=== PATIENT | female | born 1965 | race Caucasian/White ===

== ENCOUNTER 2018-11-07 14:15 | Emergency (ER) | payer MEDICAID, OTHER ==
[2018-11-07] MEDS ORDERED: NS(*) 0.9% 500 ML BAG 500 ML IV ONE (14:30)
--- NOTE | 2018-11-07 14:43 | ER Report ---
History and Physical Time Seen By MD: 14:33 HPI/ROS CHIEF COMPLAINT: Alcohol detox, suicidal ideation HISTORY OF PRESENT ILLNESS: 52-year-old female patient presents to emergency room with complaint of needing to detox from alcohol and suicidal ideation. Patient states that she tried to hang herself all she was in intermediate. She is unsure what day that was. She states that she was evaluated in the emergency room in [place]. She states she was cleared and then returned to intermediate. She states that she did attempt to strangle herself this morning. She states that she did not pass out, but she states that which he used wraparound her neck was very tight. She denies any suicidal ideation at this time. She states this was due more to being in intermediate. Patient states that she is typically very healthy and does not take any medications. REVIEW OF SYSTEMS: Respiratory: No cough, no dyspnea. Cardiovascular: No chest pain, no palpitations. Gastrointestinal: No vomiting, no abdominal pain. Musculoskeletal: No back pain. Allergies: Coded Allergies: diphenhydramine (Verified Allergy, Intermediate, Hives, 11/07/18) Home Meds Reported Medications Trazodone Hcl (TRAZODONE HCL) 100 Mg Tablet, 200 MG PO QHS, TAB 11/07/18 Clonazepam (CLONAZEPAM) 2 Mg Tablet, 2 MG PO BID, #6 TAB 11/07/18 Buspirone Hcl (BUSPIRONE HCL) 5 Mg Tab, 5 MG PO BID, #10 TAB 11/07/18 Citalopram Hydrobromide (CITALOPRAM HBR) 20 Mg Tablet, 40 MG PO QDAY, #5 TAB 11/07/18 Multivitamin (MULTI VITAMIN DAILY) 1 Each Tablet, 1 EACH PO 11/07/18 Past Medical/Surgical History Patient has a past medical history of meth use, marijuana use, alcohol abuse, hypothyroidism, suicide attempt. Patient has a surgical history of hysterectomy, tubal ligation. Reviewed Nurses Notes: Yes Constitutional Vital Sign - Last 24 Hours 11/07/18 14:49 Temp 99.4 Pulse 70 Resp 16 B/P (MAP) 133/80 O2 Delivery Room Air Physical Exam General Appearance: The patient is alert, has no immediate need for airway protection and no current signs of toxicity. Respiratory: Chest is non tender, lungs are clear to auscultation. Cardiac: regular rate and rhythm Gastrointestinal: Abdomen is soft and non tender, no masses, bowel sounds normal. Musculoskeletal: Neck: Neck is supple and non tender. Extremities have full range of motion and are non tender. Skin: No rashes or lesions. DIFFERENTIAL DIAGNOSIS: After history and physical exam differential diagnosis was considered for depression, alcohol abuse, suicidal ideation. Medical Decision Making Data Points Result Diagram: 11/07/18 1438 11/07/18 1438 Laboratory Hematology Test 11/07/18 14:38 11/07/18 14:45 Red Blood Count 5.17 M/uL (4.17-5.56) Mean Corpuscular Volume 89.9 fL (80.0-96.0) Mean Corpuscular Hemoglobin 30.4 pg (26.0-33.0) Mean Corpuscular Hemoglobin Concent 33.8 g/dL (32.0-36.0) Red Cell Distribution Width 14.3 % (11.5-14.5) Mean Platelet Volume 7.5 fL (7.2-11.1) Neutrophils (%) (Auto) 65.3 % (39.4-72.5) Lymphocytes (%) (Auto) 25.4 % (17.6-49.6) Monocytes (%) (Auto) 7.1 % (4.1-12.4) Eosinophils (%) (Auto) 1.5 % (0.4-6.7) Basophils (%) (Auto) 0.7 % (0.3-1.4) Nucleated RBC Relative Count (auto) 0.0 /100WBC Neutrophils # (Auto) 5.9 K/uL (2.0-7.4) Lymphocytes # (Auto) 2.3 K/uL (1.3-3.6) Monocytes # (Auto) 0.6 K/uL (0.3-1.0) Eosinophils # (Auto) 0.1 K/uL (0.0-0.5) Basophils # (Auto) 0.1 K/uL (0.0-0.1) Nucleated RBC Absolute Count (auto) 0.00 K/uL Sodium Level 135 mmol/L (137-145) Potassium Level 3.6 mmol/L (3.5-5.0) Chloride Level 104 mmol/L (98-107) Carbon Dioxide Level 29 mmol/L (22-31) Blood Urea Nitrogen 14 mg/dl (7-18) Creatinine 0.60 mg/dl (0.52-1.04) Glomerular Filtration Rate Calc > 60.0 Random Glucose 135 mg/dl (75-110) Calcium Level 9.1 mg/dl (8.4-10.2) Magnesium Level 1.9 mg/dl (1.7-2.2) Total Bilirubin 0.2 mg/dl (0.2-1.3) Aspartate Amino Transf (AST/SGOT) 19 U/L (0-35) Alanine Aminotransferase (ALT/SGPT) 21 U/L (0-56) Alkaline Phosphatase 78 U/L (0-126) Total Protein 7.0 g/dl (6.3-8.2) Albumin 4.2 g/dl (3.5-5.0) Thyroid Stimulating Hormone (TSH) 1.42 uIU/ml (0.46-4.68) Salicylates Level < 10 mg/L Salicylate Last Dose Date unk Acetaminophen Level < 10 ug/ml Serum Alcohol < 10 mg/dl Urine Color Yellow Urine Clarity Slightly-cloudy Urine pH 5.0 pH (4.8-9.5) Urine Specific [place] 1.026 Urine Protein Negative mg/dL (NEGATIVE) Urine Glucose (UA) Negative mg/dL (NEGATIVE) Urine Ketones Negative mg/dL (NEGATIVE) Urine Blood Negative (NEGATIVE) Urine Nitrite Negative (NEGATIVE) Urine Bilirubin Negative (NEGATIVE) Urine Urobilinogen 0.2 mg/dL (0.2-1.9) Urine Leukocyte Esterase Negative (NEGATIVE) Urine RBC <1 /HPF (0-2/HPF) Urine WBC 2 /HPF (0-5/HPF) Urine Squamous Epithelial Cells Many /LPF (</=FEW) Urine Transitional Epithelial Cells Few /LPF (NONE-FEW) Urine Bacteria Few /HPF (NONE-FEW) Urine Mucus Few /HPF (NONE-FEW) Urine HCG, Qualitative Negative (NEGATIVE) Urine Opiates Screen Negative Urine Barbiturates Screen Negative Ur Tricyclic Antidepressants Screen Negative Urine Phencyclidine Screen Negative Urine Amphetamines Screen Negative Urine Benzodiazepines Screen Negative Urine Cocaine Screen Negative Urine Cannabinoids Screen Positive Chemistry Test 11/07/18 14:38 11/07/18 14:45 White Blood Count 9.0 k/uL (4.5-11.0) Red Blood Count 5.17 M/uL (4.17-5.56) Hemoglobin 15.7 g/dL (12.0-16.0) Hematocrit 46.5 % (34.0-47.0) Mean Corpuscular Volume 89.9 fL (80.0-96.0) Mean Corpuscular Hemoglobin 30.4 pg (26.0-33.0) Mean Corpuscular Hemoglobin Concent 33.8 g/dL (32.0-36.0) Red Cell Distribution Width 14.3 % (11.5-14.5) Platelet Count 292 K/uL (150-450) Mean Platelet Volume 7.5 fL (7.2-11.1) Neutrophils (%) (Auto) 65.3 % (39.4-72.5) Lymphocytes (%) (Auto) 25.4 % (17.6-49.6) Monocytes (%) (Auto) 7.1 % (4.1-12.4) Eosinophils (%) (Auto) 1.5 % (0.4-6.7) Basophils (%) (Auto) 0.7 % (0.3-1.4) Nucleated RBC Relative Count (auto) 0.0 /100WBC Neutrophils # (Auto) 5.9 K/uL (2.0-7.4) Lymphocytes # (Auto) 2.3 K/uL (1.3-3.6) Monocytes # (Auto) 0.6 K/uL (0.3-1.0) Eosinophils # (Auto) 0.1 K/uL (0.0-0.5) Basophils # (Auto) 0.1 K/uL (0.0-0.1) Nucleated RBC Absolute Count (auto) 0.00 K/uL Glomerular Filtration Rate Calc > 60.0 Calcium Level 9.1 mg/dl (8.4-10.2) Magnesium Level 1.9 mg/dl (1.7-2.2) Total Bilirubin 0.2 mg/dl (0.2-1.3) Aspartate Amino Transf (AST/SGOT) 19 U/L (0-35) Alanine Aminotransferase (ALT/SGPT) 21 U/L (0-56) Alkaline Phosphatase 78 U/L (0-126) Total Protein 7.0 g/dl (6.3-8.2) Albumin 4.2 g/dl (3.5-5.0) Thyroid Stimulating Hormone (TSH) 1.42 uIU/ml (0.46-4.68) Salicylates Level < 10 mg/L Salicylate Last Dose Date unk Acetaminophen Level < 10 ug/ml Serum Alcohol < 10 mg/dl Urine Color Yellow Urine Clarity Slightly-cloudy Urine pH 5.0 pH (4.8-9.5) Urine Specific [place] 1.026 Urine Protein Negative mg/dL (NEGATIVE) Urine Glucose (UA) Negative mg/dL (NEGATIVE) Urine Ketones Negative mg/dL (NEGATIVE) Urine Blood Negative (NEGATIVE) Urine Nitrite Negative (NEGATIVE) Urine Bilirubin Negative (NEGATIVE) Urine Urobilinogen 0.2 mg/dL (0.2-1.9) Urine Leukocyte Esterase Negative (NEGATIVE) Urine RBC <1 /HPF (0-2/HPF) Urine WBC 2 /HPF (0-5/HPF) Urine Squamous Epithelial Cells Many /LPF (</=FEW) Urine Transitional Epithelial Cells Few /LPF (NONE-FEW) Urine Bacteria Few /HPF (NONE-FEW) Urine Mucus Few /HPF (NONE-FEW) Urine HCG, Qualitative Negative (NEGATIVE) Urine Opiates Screen Negative Urine Barbiturates Screen Negative Ur Tricyclic Antidepressants Screen Negative Urine Phencyclidine Screen Negative Urine Amphetamines Screen Negative Urine Benzodiazepines Screen Negative Urine Cocaine Screen Negative Urine Cannabinoids Screen Positive Toxicology Test 11/07/18 14:38 11/07/18 14:45 Salicylates Level < 10 mg/L Salicylate Last Dose Date unk Acetaminophen Level < 10 ug/ml Serum Alcohol < 10 mg/dl Urine Opiates Screen Negative Urine Barbiturates Screen Negative Ur Tricyclic Antidepressants Screen Negative Urine Phencyclidine Screen Negative Urine Amphetamines Screen Negative Urine Benzodiazepines Screen Negative Urine Cocaine Screen Negative Urine Cannabinoids Screen Positive Urinalysis Test 11/07/18 14:45 Urine Color Yellow Urine Clarity Slightly-cloudy Urine pH 5.0 pH (4.8-9.5) Urine Specific [place] 1.026 Urine Protein Negative mg/dL (NEGATIVE) Urine Glucose (UA) Negative mg/dL (NEGATIVE) Urine Ketones Negative mg/dL (NEGATIVE) Urine Blood Negative (NEGATIVE) Urine Nitrite Negative (NEGATIVE) Urine Bilirubin Negative (NEGATIVE) Urine Urobilinogen 0.2 mg/dL (0.2-1.9) Urine Leukocyte Esterase Negative (NEGATIVE) Urine RBC <1 /HPF (0-2/HPF) Urine WBC 2 /HPF (0-5/HPF) Urine Squamous Epithelial Cells Many /LPF (</=FEW) Urine Transitional Epithelial Cells Few /LPF (NONE-FEW) Urine Bacteria Few /HPF (NONE-FEW) Urine Mucus Few /HPF (NONE-FEW) Urine HCG, Qualitative Negative (NEGATIVE) EKG/Imaging Imaging EXAMINATION: CTA of the neck with IV contrast HISTORY: Self strangling. TECHNIQUE: Thin axial CT images of the neck were obtained with IV contrast during maximal arterial opacification, from the aortic arch through the [place]. Reconstruction of the source data set includes 3D coronal and sagittal thin slab MIP images, and 2D oblique sagittal reconstructions through the carotid arteries. Prosthetics Lab Technician images have been stored on PACS. Stenosis calculations are performed using the NASCET criteria. One of the following dose optimization techniques was utilized in the pe rformance of this exam: Automated exposure control; adjustment of the mA and/or kV according to the patient's size; or use of an iterative reconstruction technique. Specific details can be referenced in the facility's radiology CT exam operational policy. Contrast: 75 mL of IV Isovue-370. COMPARISON: None. FINDINGS: Angiographic findings: Thoracic aorta: Unremarkable. Origins of the great vessels are widely patent. There is normal variant anatomy of the arch vessels. The brachiocephalic artery and left common carotid artery share a common origin. The left vertebral artery has a separate origin from the aortic arch. Right CCA/ICA: Negative. Left CCA/ICA: Negative. Vertebrobasilar: There is a small lobular focus of arterial enhancement abutting the wall of the left vertebral artery along the V3 segment just after the artery exits the transverse foramen of C1. This measures 3 x 3 x 3 mm, with CT appearance suggesting a small pseudoaneurysm. The vertebral artery is otherwise unremarkable at this level without luminal narrowing or evidence of dissection. No surrounding soft tissue attenuation or hemorrhage. The bilateral vertebral arteries are patent and otherwise unremarkable. Vertebral arteries are codominant. The basilar artery is negative. [place]: Negative. Nonvascular findings: No acute osseous findings along the cervical spine. Chronic multilevel spondylotic changes. There is disc space narrowing at the C4-C5 through C6-C7 interspaces with endplate osteophyte formation. Posterior elements appear intact with normal alignment along the cervical facet joints. The dens is intact. Normal alignment at the craniocervical junction. Soft tissue structures of the neck are unremarkable by CT. No localized hematoma or fluid collection. No soft tissue gas. The visualized lung apices are clear. IMPRESSION: 1. 3 mm lobular focus of arterial enhancement adjacent to the wall of the the V3 segment of the left vertebral artery above C1, suspicious for a small pseudoaneurysm. This may be chronic in nature but without the benefit of prior comparison examinations. The vertebral artery is otherwise unremarkable at this level without luminal narrowing or evidence of dissection. If clinically indicated follow-up CT imaging could be performed to assess for stability. 2. Otherwise unremarkable CTA of the neck. 3. No acute osseous findings along the cervical spine. Chronic degenerative changes. Findings were discussed with CJ LANGE at 11/07/2018 5:41 PM. Report Dictated By: Tam Gordillo MD at 11/07/2018 5:16 PM Report E-Signed By: Tam Gordillo MD at 11/07/2018 5:42 PM ED Course/Re-evaluation ED Course Patient was admitted to exam room, history and physical were obtained. Differential diagnoses were considered. On examination lungs are clear, heart is regular, abdomen soft nontender. Patient was emotional and tearful during interview. Lab work for a behavioral health admission were done as well as a CT angiogram of the neck and carotid arteries. Patient stated that she had choked herself earlier today. As a result of that we did do the CT scan. 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 I discussed the case with Dr. Abad, psychiatrist, who agreed to accept the patient for admission. I discussed this with the patient who verbalized understanding and agreement with plan. Decision to Disposition Date: Nov 07, 2018 Decision to Disposition Time: 17:49 Depart Departure Latest Vital Signs Vital Signs Date Time Temp Pulse Resp B/P (MAP) Pulse Ox O2 Delivery O2 Flow Rate FiO2 11/07/18 14:49 99.4 70 16 133/80 Room Air Impression: Primary Impression: Alcohol dependence Additional Impression: Suicidal ideation Condition: Improved Disposition: [facility] Problem Qualifiers Primary Impression: Alcohol dependence Substance use status: uncomplicated Qualified Codes: F10.20 - Alcohol dependence, uncomplicated CJ LANGE [facility] Nov 07, 2018 14:43
[2018-11-07 14:49] VITALS: BP 133/80
[2018-11-07 14:50] LABS: PLATELET COUNT, AUTOMATED 292 K/uL (150-450)
[2018-11-07] MEDS ORDERED: IOPAMIDOL 76% 150 ML INFUS BTL 150 ML ONE (15:03)
[2018-11-07] MEDS ORDERED: NS(*) 0.9% 50 ML BAG 50 ML ONE (15:04)
[2018-11-07] MEDS ORDERED: TRAZ100T31 PO (17:06)
[2018-11-07] MEDS ORDERED: CITA-145 PO (17:06)
[2018-11-07] MEDS ORDERED: BUS5 PO (17:06)
[2018-11-07] MEDS ORDERED: CLON-335 PO (17:06)
[2018-11-07] MEDS ORDERED: MULT1TAB64 PO (17:06)
--- NOTE | 2018-11-07 17:46 | RADIOLOGY IMAGING REPORT ---
FACILITY: [facility] PATIENT NAME: Mildred Forbes : 1965 MR: [id number] V: [id number] EXAM DATE: ORDERING PHYSICIAN: CJ LANGE TECHNOLOGIST: Location: [facility] [place] Patient: Mildred Forbes : 1965 Visit/Account:[id number] Date of Sevice: 11/07/2018 EXAMINATION: CTA of the neck with IV contrast HISTORY: Self strangling. TECHNIQUE: Thin axial CT images of the neck were obtained with IV contrast during maximal arterial op acification, from the aortic arch through the [place]. Reconstruction of the source data se t includes 3D coronal and sagittal thin slab MIP images, and 2D oblique sagittal reconstructions thro ugh the carotid arteries. Cardiology Nurse Practitioner images have been stored on PACS. Stenosis calculations are performed using the NASCET criteria. One of the following dose optimization techniques was utilized in the performance of this exam: Autom ated exposure control; adjustment of the mA and/or kV according to the patient's size; or use of an i terative reconstruction technique. Specific details can be referenced in the facility's radiology C T exam operational policy. Contrast: 75 mL of IV Isovue-370. COMPARISON: None. FINDINGS: Angiographic findings: Thoracic aorta: Unremarkable. Origins of the great vessels are widely patent. There is normal variant anatomy of the arch vessels. The brachiocephalic artery and left common carotid artery share a commo n origin. The left vertebral artery has a separate origin from the aortic arch. Right CCA/ICA: Negative. Left CCA/ICA: Negative. Vertebrobasilar: There is a small lobular focus of arterial enhancement abutting the wall of the left vertebral artery along the V3 segment just after the artery exits the transverse foramen of C1. This measures 3 x 3 x 3 mm, with CT appearance suggesting a small pseudoaneurysm. The vertebral artery is otherwise unremarkable at this level without luminal narrowing or evidence of dissection. No surroun ding soft tissue attenuation or hemorrhage. The bilateral vertebral arteries are patent and otherwise unremarkable. Vertebral arteries are codomi nant. The basilar artery is negative. [place]: Negative. Nonvascular findings: No acute osseous findings along the cervical spine. Chronic multilevel spondylotic changes. There is disc space narrowing at the C4-C5 through C6-C7 interspaces with endplate osteophyte formation. Poste rior elements appear intact with normal alignment along the cervical facet joints. The dens is intact . Normal alignment at the craniocervical junction. Soft tissue structures of the neck are unremarkable by CT. No localized hematoma or fluid collection. No soft tissue gas. The visualized lung apices are clear. IMPRESSION: 1. 3 mm lobular focus of arterial enhancement adjacent to the wall of the the V3 segment of the left vertebral artery above C1, suspicious for a small pseudoaneurysm. This may be chronic in nature but w ithout the benefit of prior comparison examinations. The vertebral artery is otherwise unremarkable a t this level without luminal narrowing or evidence of dissection. If clinically indicated follow-up C T imaging could be performed to assess for stability. 2. Otherwise unremarkable CTA of the neck. 3. No acute osseous findings along the cervical spine. Chronic degenerative changes. Findings were discussed with CJ LANGE at 11/07/2018 5:41 PM. Report Dictated By: Tam Gordillo MD at 11/07/2018 5:16 PM Report E-Signed By: Tam Gordillo MD at 11/07/2018 5:42 PM WSN:[id number]
== END 2018-11-07 18:28 ==
LOC: ER 14:33
DX: F10.20 Alcohol dependence, uncomplicated (principal); R45.851 Suicidal ideations
CPT/HCPCS: 36415; 70498; 80305; 81001; 81025; 83735; 84443; 85025; 99284; G0480; J7050; Q9967; 80320; 80329; 82040; 82247; 82310; 82374; 82435; 82565; 82947; 84075; 84132; 84155; 84295; 84450; 84460; 84520

== ENCOUNTER 2018-11-07 17:07 | Inpatient (IN) | payer MEDICAID, OTHER ==
[~2018-11-07] VITALS: Ht 160 cm; Wt 59.9 kg
[~2018-11-07 17:07] MED LIST: BUS5 PO; CITA-145 PO; CLON-335 PO; MULT1TAB64 PO; TRAZ100T31 PO
[2018-11-07] MEDS ORDERED: ACETAMINOPHEN 325 MG TAB PO PRN (18:50)
[2018-11-07] MEDS ORDERED: MAG HYD/AL HYD/SIMETH 30ML UDC PO PRN (18:50)
[2018-11-07 20:21] VITALS: BP 122/82
[2018-11-07] MEDS ORDERED: traZODone HCL 50 MG TAB PO PRN (20:45)
[2018-11-07] MEDS: busPIRone HCL 5 MG TAB PO SCH (21:16)
[2018-11-08 05:35] VITALS: BP 86/65
[2018-11-08] MEDS: CITALOPRAM HYDROBROM 20 MG TAB PO SCH (08:16)
[2018-11-08] MEDS: busPIRone HCL 5 MG TAB PO SCH ×2 (08:17→20:34)
[2018-11-08] MEDS: MULTIVITAMINS PO SCH (08:17)
[2018-11-08 13:26] VITALS: BP_SYST 104; BP_SYST 99; BP_DIAS 74; BP_DIAS 78
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
[2018-11-08] MEDS: traZODone HCL 50 MG TAB PO PRN (20:35)
[2018-11-09] MEDS: CITALOPRAM HYDROBROM 20 MG TAB PO SCH (08:32)
[2018-11-09] MEDS: busPIRone HCL 5 MG TAB PO SCH ×2 (08:32→20:49)
[2018-11-09] MEDS: MULTIVITAMINS PO SCH (08:33)
[2018-11-09 09:45] VITALS: BP 85/68
--- NOTE | 2018-11-09 14:28 | BHS Progress Note ---
[facility] - Subjective Progress Notes Subjective Pt seen in conference room with team. Pt says she is feeling better, denies SI today, still moderately depressed mood due to overwhelmed with stressors-- spoke with daughter by phone, and dtr's husb just got out of penitentiary, with a restraining order-- dtr asking pt, "How can I get the restraining order lifted bc I need his help with kids?"-- Pt says she does not want to go to a rehab, even if it means being treated here until bed opens at [facility]. We tried to encourage her, since this would certainly be our best recommendation given her hx of ETOH and cannabis. Her BP's are running low-- she denies hx of low bp's. Will try her on lower dose of citalopram and monitor BP's-- low likelihood, but it could be contributing. Pt drinking fluids well. Pt also presents somewhat hypomanic today, so less citalopram my be a good idea. Suicidal Ideation: None Homicidal Ideation: None [facility] - Objective Physical Exam Vital Signs Vital Signs 11/09/18 09:45 Temp 98.9 Pulse 77 Resp 20 B/P (MAP) 85/68 (74) Pulse Ox 95 O2 Delivery Room Air Muscle Strength and Tone: WNL Gait and Station: Steady [facility] Medications Reviewed: Side Effects, Benefits of Medication, Risks Allergies Reviewed: Yes Mental Status Exam General Appearance: Casual, Well Groomed, Cooperative, Good Interaction, Psychomotor Agitation Speech: Other (loud and rapid) Mood: Hyperthymic Affect: Other (hyperthymic) Thought Process: Other (circumstantial) Thought Content: No Suicidal Ideation, No Homicidal Ideation, No Delusions, No Auditory Halllucinations, No Visual Hallucinations, No Thought Broadcasting, No Ideas of Reference, No Obsessions, No Compulsions, No Other Sensorium: Clear Cognition: Alert & Oriented-Person, Alert & Oriented-Place, Alert & Oriented- Time, Kmhaa-Ifgnzjdb-Kqoroiakk Memory: Immediate, Recent, Remote Intelligence: Average Insight Judgment: Fair [facility] Assessment and Plan Ktez-hl-Aqyn Encounter Date: Nov 09, 2018 Vceu-zi-Uwoi Encounter Time: 08:30 [facility] Plan: Necessary Precautions, Individual/Group Therapy, Admin/Titrate Meds, Educate Patient Tobacco Medications: Started Multpiple Antipsychotics Used: No Problems: (1) Alcohol use disorder, severe, dependence (2) Cannabis use disorder, severe, dependence (3) Persistent depressive disorder (4) Partner relational problem MYNOR GARRETT MD Nov 09, 2018 14:28
[2018-11-09] MEDS ORDERED: CLON-331 PO (18:42)
[2018-11-09] MEDS ORDERED: CITA-157 PO (18:42)
--- NOTE | 2018-11-09 19:24 | EKG ---
[place] [facility] [place] MARTHA GILMORE : [id number] MR: [id number] V: [id number] EXAM DATE: ORDERING PHYSICIAN: MYNOR GARRETT TECHNOLOGIST: YUNIER Cannon Reason : LOW BP Blood Pressure : / mmHG Vent. Rate : 063 BPM Atrial Rate : 063 BPM P-R Int : 120 ms QRS Dur : 078 ms QT Int : 394 ms P-R-T Axes : 025 078 084 degrees QTc Int : 403 ms Sinus rhythm No acute appearing findings No previous ECGs available Confirmed by VEGA PAYNE ([id number] on 11/09/2018 8:06:57 PM Referred By: Confirmed By:VEGA PAYNE
[2018-11-09] MEDS: traZODone HCL 50 MG TAB PO PRN (20:49)
[2018-11-09 21:55] VITALS: BP 110/62
[2018-11-10 06:45] LABS: PLATELET COUNT, AUTOMATED 246 K/uL (150-450)
[2018-11-10 06:48] VITALS: BP 116/82
[2018-11-10] MEDS: CITALOPRAM HYDROBROM 20 MG TAB PO SCH (08:06)
[2018-11-10] MEDS: MULTIVITAMINS PO SCH (08:06)
[2018-11-10] MEDS: busPIRone HCL 5 MG TAB PO SCH ×2 (08:06→20:59)
[2018-11-10 13:33] VITALS: BP 104/58
--- NOTE | 2018-11-10 18:28 | BHS Progress Note ---
[facility] - Subjective Progress Notes Subjective Pt seen in treatment team meeting with Cheryl from the [facility] in [place] attending by speaker phone. Pt reports feeling 'better now that I am not in the retirement anymore." We discussed out observations of hyperthymic affect-- pt has had pressured speech, rearranged all of the books on the [facility] Unit bookshelves, rearranged the magazines, displays a lot of hypergraphia. Pt acknowledges hx of mood swings, racing thoughts, increased goal-directed activity. We chose to DC citalopram, and tomorrow will begin lamictal 25 mg q day for mood stability. Discussed risk of rash. Will continue trazodone at b edtime and buspar BID. Cheryl at [facility] said that pt is welcome to attend activities and hoahaoism services with their program, but she is not able to re-enter their residential program. Pt is still not wanting to enter a rehab program, and she is still on the waiting list for [facility]. She has been very active in treatment groups. Continue to confront resistance and encourage rehab treatment. Suicidal Ideation: None Homicidal Ideation: None [facility] - Objective Physical Exam Vital Signs Vital Signs 11/10/18 13:33 Temp 99.4 Pulse 71 Resp 16 B/P (MAP) 104/58 (73) Pulse Ox 96 O2 Delivery Room Air Muscle Strength and Tone: WNL Gait and Station: Steady [facility] Medications Reviewed: Side Effects, Benefits of Medication, Risks Allergies Reviewed: Yes Mental Status Exam General Appearance: Casual, Well Groomed, Good Eye Contact, Cooperative, Good Interaction, Psychomotor Agitation Speech: Other (loud and rapid) Mood: Hyperthymic Affect: Other (hyperthymic) Thought Process: Other (circumstantial) Thought Content: No Suicidal Ideation, No Homicidal Ideation, No Delusions, No Auditory Halllucinations, No Visual Hallucinations, No Thought Broadcasting, No Ideas of Reference, No Obsessions, No Compulsions, No Other Sensorium: Clear Cognition: Alert & Oriented-Person, Alert & Oriented-Place, Alert & Oriented- Time, Yinwb-Cuzewwiy-Cmfmhezie Memory: Immediate, Recent, Remote Intelligence: Average Insight Judgment: Fair Result Diagram: 11/10/1833 11/10/1833 [facility] Assessment and Plan Hhjg-dx-Rgfk Encounter Date: Nov 10, 2018 Jksz-mk-[id number] Encounter Time: 08:40 [facility] Plan: Necessary Precautions, Individual/Group Therapy, Admin/Titrate Meds, Educate Patient Tobacco Medications: Started Multpiple Antipsychotics Used: No Problems: (1) Alcohol use disorder, severe, dependence (2) Bipolar disorder, unspecified (3) Cannabis use disorder, severe, dependence (4) Partner relational problem MYNOR GARRETT MD Nov 10, 2018 18:28
[2018-11-10] MEDS: traZODone HCL 50 MG TAB PO PRN (20:59)
[2018-11-11 06:15] VITALS: BP 130/76
[2018-11-11] MEDS: busPIRone HCL 5 MG TAB PO SCH ×2 (08:50→20:51)
[2018-11-11] MEDS: lamoTRIgine 25 MG TAB PO SCH (08:50)
[2018-11-11] MEDS: MULTIVITAMINS PO SCH (08:50)
[2018-11-11] MEDS: NICOTINE CARTRIDGE 1 EA PO PRN (09:15)
[2018-11-11] MEDS ORDERED: EUCALYPTUS/MENTHOL LOZ MM PRN (09:15)
[2018-11-11] MEDS: NICOTINE INH SYSTEM 10 MG/INH INH PRN ×2 (09:15→14:33)
--- NOTE | 2018-11-11 09:15 | BHS Progress Note ---
[facility] - Subjective Progress Notes Subjective "I'm in a good mood except for my coughing spill this am. I was in [place] [facility] before this so I'm doing better." Sleep sufficient, "But usually it's all over the place." Depression "I had some dreams that brought back memories so 3." Denies anger, anxiety 0/10 "My anxiety is what was, what's not going to be. Denies having stable housing, "I"m homeless right now." Becomes slightly tearful discussing what future holds Denies s/s juan or psychosis Denies urge to harm self or others States daughter remains good support system Suicidal Ideation: None Homicidal Ideation: None [facility] - Objective Physical Exam Vital Signs Allergies Coded Allergies diphenhydramine (Verified Allergy, Intermediate, Hives, 11/07/18) Deferred Medications (Trade) Dose Ordered Sig/Veena Route PRN Reason Start Time Stop Time Status Last Admin Dose Admin Buspirone HCl (Buspar 5 Mg Tab (Or Equiv)) 15 mg BID PO 11/07/18 21:00 12/07/18 20:59 11/11/18 08:50 Citalopram Hydrobromide (CeleXA 20 MG TAB (OR EQUIV)) 40 mg QDAY PO 11/08/18 09:00 11/10/18 09:06 DC 11/10/18 08:06 Lamotrigine (LaMICtal 25 MG TAB (OR EQUIV)) 25 mg QAM PO 11/11/18 09:00 12/11/18 08:59 11/11/18 08:50 Multivitamins (Thera-M Enhanced Tab (Or Equiv)) 1 each QDAY PO 11/08/18 09:00 12/08/18 08:59 11/11/18 08:50 Trazodone HCl (Desyrel 50 Mg Tab (Or Equiv)) 100 mg QHS PRN PO INSOMNIA 11/08/18 12:55 12/08/18 12:54 11/10/18 20:59 Muscle Strength and Tone: WNL Gait and Station: Steady [facility] Medications Reviewed: Side Effects, Benefits of Medication, Risks Allergies Reviewed: Yes Mental Status Exam General Appearance: Casual, Well Groomed, Good Eye Contact, Cooperative, Polite, Good Interaction; No Psychomotor Agitation Speech: Clear, Spontaneous; No Normal Rate; Normal Rhythm, Normal Volume, Normal Tone, Other (slightly pressured) Mood: Euthymic; No Hyperthymic Affect: Full and Appropriate, Calm, Tearful; No Other (hyperthymic) Thought Process: Organized, Logical, Goal Directed; No Other (circumstantial) Thought Content: No Suicidal Ideation, No Homicidal Ideation, No Delusions, No Auditory Halllucinations, No Visual Hallucinations, No Thought Broadcasting, No Ideas of Reference, No Obsessions, No Compulsions, No Other Sensorium: Clear Cognition: Alert & Oriented-Person, Alert & Oriented-Place, Alert & Oriented- Time, Pmahh-Cqjybfdy-Awvusfjlz Memory: Immediate, Recent, Remote Intelligence: Average Insight Judgment: Fair Result Diagram: 11/10/1833 11/10/1833 [facility] Assessment and Plan Mkbm-[id number] Encounter Date: Nov 11, 2018 Quci-de-Yunf Encounter Time: 09:09 [facility] Plan: Necessary Precautions, Individual/Group Therapy, Admin/Titrate Meds, Educate Patient Tobacco Medications: Started Multpiple Antipsychotics Used: No Problems: (1) Alcohol use disorder, severe, dependence Status: Chronic (2) Partner relational problem Status: Acute (3) Persistent depressive disorder Status: Chronic (4) Cannabis use disorder, severe, dependence Status: Chronic Condition Continue current medications and treatment Continue Lamotrigine 25mg po every am, Trazadone q pm Awaiting disposition, possibly SAPNA PARADA NP Nov 11, 2018 09:15
[2018-11-11] MEDS: traZODone HCL 50 MG TAB PO PRN (20:52)
[2018-11-12 05:53] VITALS: BP 105/84
[2018-11-12] MEDS: lamoTRIgine 25 MG TAB PO SCH (08:23)
[2018-11-12] MEDS: busPIRone HCL 5 MG TAB PO SCH ×2 (08:23→21:02)
[2018-11-12] MEDS: MULTIVITAMINS PO SCH (08:23)
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
[2018-11-12] MEDS: NICOTINE INH SYSTEM 10 MG/INH INH PRN ×2 (13:14→19:25)
[2018-11-12 14:55] VITALS: BP 106/62
[2018-11-12] MEDS: traZODone HCL 50 MG TAB PO PRN (21:02)
[2018-11-13 06:05] VITALS: BP_SYST 83; BP_SYST 87; BP_SYST 98; BP_DIAS 55; BP_DIAS 71
[2018-11-13] MEDS: lamoTRIgine 25 MG TAB PO SCH (08:27)
[2018-11-13] MEDS: busPIRone HCL 5 MG TAB PO SCH ×2 (08:27→21:45)
[2018-11-13] MEDS: MULTIVITAMINS PO SCH (08:27)
--- NOTE | 2018-11-13 11:06 | BHS Progress Note ---
[facility] - Subjective Progress Notes Subjective Pt seen, in treatment team. Pt feels "amazing." Denies SI. Still quite pressured in her speech and acknowledges feeling "wound up." Is sleeping though. Denies anxiety. We will DC trazodone and change to seroquel due to mood instability. Will also taper and dc buspar to see if she still needs it. Suicidal Ideation: None Homicidal Ideation: None [facility] - Objective Physical Exam Vital Signs Vital Signs 11/12/18 11/13/18 14:55 06:05 Temp 98.4 Pulse 62 Resp 16 B/P (MAP) 83/55 (64) Pulse Ox 94 O2 Delivery Room Air Muscle Strength and Tone: WNL Gait and Station: Steady [facility] Medications Reviewed: Side Effects, Benefits of Medication, Risks Allergies Reviewed: Yes Mental Status Exam General Appearance: Casual, Well Groomed, Good Eye Contact, Cooperative, Polite, Good Interaction; No Psychomotor Agitation Speech: Clear, Spontaneous; No Normal Rate; Normal Rhythm, Normal Volume, Normal Tone, Rambling, Other (slightly pressured) Mood: Euthymic; No Hyperthymic Affect: Full and Appropriate, Calm, Tearful (at times, mostly euthymic); No Other (hyperthymic) Thought Process: Organized, Logical, Goal Directed; No Other (circumstantial) Thought Content: No Suicidal Ideation, No Homicidal Ideation, No Delusions, No Auditory Halllucinations, No Visual Hallucinations, No Thought Broadcasting, No Ideas of Reference, No Obsessions, No Compulsions, No Other Sensorium: Clear Cognition: Alert & Oriented-Person, Alert & Oriented-Place, Alert & Oriented- Time, Lxrqc-Bxcrhgaw-Kmvwzgfxx Memory: Immediate, Recent, Remote Intelligence: Average Insight Judgment: Fair Result Diagram: 11/10/1833 11/10/18632 [facility] Assessment and Plan Ljcs-gp-Hije Encounter Date: Nov 13, 2018 Qzey-mz-Tjyi Encounter Time: 09:00 [facility] Plan: Necessary Precautions, Individual/Group Therapy, Admin/Titrate Meds, Educate Patient Tobacco Medications: Started Multpiple Antipsychotics Used: No Problems: (1) Alcohol use disorder, severe, dependence Status: Chronic (2) Bipolar disorder, unspecified (3) Cannabis use disorder, severe, dependence Status: Chronic (4) Partner relational problem Status: Acute MYNOR GARRETT MD Nov 13, 2018 11:06
[2018-11-13 12:02] VITALS: BP 94/74
[2018-11-13] MEDS: QUEtiapine FUM 25 MG TAB PO SCH (21:29)
[2018-11-14 06:00] VITALS: BP 91/52
[2018-11-14] MEDS: lamoTRIgine 25 MG TAB PO SCH (08:29)
[2018-11-14] MEDS: busPIRone HCL 5 MG TAB PO SCH (08:29)
[2018-11-14] MEDS: MULTIVITAMINS PO SCH (08:29)
[2018-11-14] MEDS ORDERED: busPIRone HCL 5 MG TAB PO SCH (09:00)
[2018-11-14] MEDS ORDERED: lamoTRIgine 25 MG TAB PO ONE (11:00)
[2018-11-14] MEDS: NICOTINE INH SYSTEM 10 MG/INH INH PRN (13:03)
[2018-11-14] MEDS: QUEtiapine FUM 25 MG TAB PO SCH (20:52)
--- NOTE | 2018-11-14 21:04 | BHS Progress Note ---
[facility] - Subjective Progress Notes Subjective Pt seen in conference room with team. She reports feeling more grumpy today, she is a little down bc another pt who she has become friends with is discharging tomorrow morning. She is also a little groggy this am after starting first dose of seroquel 50 mg last night. Tolerating lamictal well-- no rash. Will go ahead and titrate to 50 mg today, 75 mg tomorrow, and 100 mg q am beginning . She is less pressured today, less hyperthymic, is more dysphoric-- hopefully mood is stabilizing after DC of citalopram 5 days ago which may have been inducing some hypomania. Ralf HARDIN, is [facility], very active in her treatment, but still NOT interested in transfer to a rehab program. We will need to continue titration of new medications, monitor for SE's/response, substance abuse treatment focus in groups, help pt establish safe housing (we [place] [facility] [place] and look into an outpatient treatment program-- if we can get all of that in place she might be able to stabilize and discharge without needing to transfer to [facility]. Suicidal Ideation: None Homicidal Ideation: None [facility] - Objective Physical Exam Vital Signs Vital Signs 11/14/18 06:00 Temp 97.8 Pulse 58 Resp 15 B/P (MAP) 91/52 (65) Pulse Ox 97 O2 Delivery Room Air Muscle Strength and Tone: WNL Gait and Station: Steady [facility] Medications Reviewed: Side Effects, Benefits of Medication, Risks Allergies Reviewed: Yes Mental Status Exam General Appearance: Casual, Well Groomed, Good Eye Contact, Cooperative, Polite, Good Interaction; No Psychomotor Agitation Speech: Clear, Spontaneous; No Normal Rate; Normal Rhythm, Normal Volume, Normal Tone, Rambling Mood: Euthymic; No Hyperthymic Affect: Full and Appropriate, Calm, Sad, Tearful (more tearful today) Thought Process: Organized, Logical, Goal Directed; No Other (circumstantial) Thought Content: No Suicidal Ideation, No Homicidal Ideation, No Delusions, No Auditory Halllucinations, No Visual Hallucinations, No Thought Broadcasting, No Ideas of Reference, No Obsessions, No Compulsions, No Other Sensorium: Clear Cognition: Alert & Oriented-Person, Alert & Oriented-Place, Alert & Oriented- Time, Jfims-Tynxrsof-Xjtwmqarc Memory: Immediate, Recent, Remote Intelligence: Average Insight Judgment: Fair Result Diagram: 11/10/18 0633 11/10/18 0633 [facility] Assessment and Plan Jlpi-gf-Pxqn Encounter Date: Nov 14, 2018 Cwjp-vy-Upph Encounter Time: 09:30 [facility] Plan: Necessary Precautions, Individual/Group Therapy, Admin/Titrate Meds, Educate Patient Tobacco Medications: Started Multpiple Antipsychotics Used: No Problems: (1) Alcohol use disorder, severe, dependence Status: Chronic (2) Bipolar disorder, unspecified (3) Cannabis use disorder, severe, dependence Status: Chronic (4) Partner relational problem Status: Acute MYNOR GARRETT MD Nov 14, 2018 19:16
[2018-11-14 21:45] VITALS: BP 118/70
[2018-11-15 04:50] VITALS: BP 95/76
[2018-11-15] MEDS: NICOTINE INH SYSTEM 10 MG/INH INH PRN (07:49)
[2018-11-15] MEDS: lamoTRIgine 25 MG TAB PO SCH (08:38)
[2018-11-15] MEDS: MULTIVITAMINS PO SCH (08:40)
[2018-11-15] MEDS ORDERED: lamoTRIgine 25 MG TAB PO ONE (09:00)
[2018-11-15] MEDS ORDERED: DIVALPROEX SOD ER 500 MG TABSR PO SCH (10:25)
--- NOTE | 2018-11-15 16:37 | BHS Progress Note ---
[facility] - Subjective Progress Notes Subjective Mildred met with the treatment team this morning. I reviewed her history last night with Dr. Abad as well. Today, Jenny is aggressively making plans for her release, however, there is a distinct pressured quality to her thinking and behavior and she agrees that she is feeling intense emotions. Although she denies racing thoughts, her speech and behavior are clearly pressured. She seems overly emotional to me and talking about how excited she is that people at home are not abandoning her. She has been making a lot of phone calls. I asked Mildred about any psychotic symptoms. She admits that her mother, who is , is communicating with her. Her mother two years ago. Suicidal Ideation: None Homicidal Ideation: None [facility] - Objective Physical Exam Vital Signs Vital Signs 11/14/18 11/15/18 06:00 04:50 Temp 98.4 Pulse 62 Resp 15 B/P (MAP) 95/76 (82) Pulse Ox 97 O2 Delivery Room Air Muscle Strength and Tone: WNL Gait and Station: Steady [facility] Medications Reviewed: Side Effects, Benefits of Medication, Risks Allergies Reviewed: Yes Mental Status Exam General Appearance: Casual, Well Groomed, Good Eye Contact, Cooperative, Polite, Good Interaction; No Psychomotor Agitation Speech: Clear, Spontaneous, Rambling, Other (Pressured speech) Mood: Hyperthymic Affect: Tearful (more tearful today), Agitated, Other (Increased affect. Very emotional) Thought Process: Organized, Logical, Goal Directed, Flight of Ideas Thought Content: No Suicidal Ideation, No Homicidal Ideation, No Delusions; Other (see history) Sensorium: Clear Cognition: Alert & Oriented-Person, Alert & Oriented-Place, Alert & Oriented- Time, Tezcw-Zrtrmddh-Tpeqbhrcn Memory: Immediate, Recent, Remote Intelligence: Average Insight Judgment: Fair [facility] Assessment and Plan Ixfa-hy-Nnxq Encounter Date: Nov 15, 2018 Shne-bv-Xxqx Encounter Time: 09:50 [facility] Plan: Necessary Precautions, Individual/Group Therapy, Admin/Titrate Meds, Educate Patient Tobacco Medications: Started Multpiple Antipsychotics Used: No Problems: (1) Bipolar 1 disorder with moderate juan Status: Acute Assessment & Plan: Stop Lamictal. Continue Seroquel. Start Depakote tomorrow. (2) Alcohol dependence Status: Acute Condition Mildred is showing more signs of juan and that this contributed to her bizarre behavior toward her former boyfriend prior to admission as opposed to Borderline personality traits. She has pressured speech and increased affect. She also admits to what sound to me like psychotic symptoms involving her mot her's communicating with her. We discussed making a medication change. I would like to get her on a mood stabilizer that is indicated for acute juan. I am stopping the Lamictal in favor of Depakote. I am aware of the possibility of SJS with these medications, so will delay starting the Depakote until tomorrow and will increase Seroquel tonight. She has no signs of rash today. JENARO MARR DO Nov 15, 2018 16:37
[2018-11-15] MEDS: NICOTINE CARTRIDGE 1 EA PO PRN (17:03)
[2018-11-15] MEDS: QUEtiapine FUM 100 MG TAB PO SCH (20:32)
[2018-11-16 06:04] VITALS: BP 101/61
[2018-11-16] MEDS: MULTIVITAMINS PO SCH (08:21)
[2018-11-16] MEDS ORDERED: lamoTRIgine 100 MG TAB PO SCH (09:00)
--- NOTE | 2018-11-16 13:11 | BHS Progress Note ---
[facility] - Subjective Progress Notes Subjective Current medications: Seroquel 200 mgs and aatrazodone 100 mgs at hs prn Mildred is coming to team rounds today with her Bible. She has just gotten off of the phone with her demurrage man. She called him to get answers to a "Bible question." She is still taking copious notes and making a lot of phone calls. She believes that the [employer] will help her pay for an apartment (she is not [facility]), and that she needs to be home in [place] to be with her family. She learned, today, that her daughter's has been arrested on drug charges and her daughter may also be arrested on drug possession charges. She also learned today that she cannot rent an apartment because she "trashed" her last apartment in [place]. Mildred's daughter has four children and is also taking care of Mildred's 16-year-old daughter. Still, Mildred almost seems euphoric. Her mood is very happy and she feels she is "very blessed." Mildred's presentation is very different from what was described prior to admission--suicide attempts, severely depressed mood, "trashing" her apartment. Mildred has had bouts of severe depression but most recently this was accompanied by other bizarre, impulsive behavior. She has presented with a manic affect the past two days. Based on this, I believe that Mildred has bipolar disorder with mixed manic and depressive features. She reports that she has had problems with depression for which she has taken medication for about the last 10 years. We talked about medications. I stopped Lamictal yesterday in anticipation of starting Depakote today. I am aware of the risk of a cutaneous drug reaction and will watch closely for any signs of this. Suicidal Ideation: None Homicidal Ideation: None [facility] - Objective Physical Exam Vital Signs Vital Signs 11/16/18 06:04 Temp 97.7 Pulse 68 Resp 15 B/P (MAP) 101/61 (74) Pulse Ox 95 O2 Delivery Room Air Muscle Strength and Tone: WNL Gait and Station: Steady [facility] Medications Reviewed: Side Effects, Benefits of Medication, Risks Allergies Reviewed: Yes Mental Status Exam General Appearance: Casual, Well Groomed, Good Eye Contact, Cooperative, Polite, Good Interaction; No Psychomotor Agitation Speech: Clear, Spontaneous, Rambling, Other (Pressured speech) Mood: Hyperthymic Affect: Other (Increased affect. Very emotional) Thought Process: Organized, Logical, Goal Directed, Flight of Ideas Thought Content: No Suicidal Ideation, No Homicidal Ideation, No Delusions; Other (see history) Sensorium: Clear Cognition: Alert & Oriented-Person, Alert & Oriented-Place, Alert & Oriented-Time, Fdplu-Uzaggjsj-Fwaqjidrm Memory: Immediate, Recent, Remote Intelligence: Average Insight Judgment: Poor [facility] Assessment and Plan Tekc-ox-Fthi Encounter Date: Nov 16, 2018 Ykxz-js-Vqem Encounter Time: 10:40 [facility] Plan: Necessary Precautions, Individual/Group Therapy, Admin/Titrate Meds, Educate Patient Tobacco Medications: Started Multpiple Antipsychotics Used: No Problems: (1) Bipolar 1 disorder, mixed (2) Alcohol use disorder Condition Begin Depakote ER 500 mgs at night today. Will advance as tolerated while continuing Seroquel. We are continuing to focus on discharge planning. In spite of her efforts, it does not appear to me that Mildred has many options, especially since her daughter may be going to [facility] for drug charges. We called [facility] and learned she is #17 on the waiting list. We would like her to get treatment for her substance abuse problems as well. JENARO MARR DO Nov 16, 2018 13:11
[2018-11-16 14:00] VITALS: BP 118/76
[2018-11-16] MEDS: QUEtiapine FUM 100 MG TAB PO SCH (20:50)
[2018-11-16] MEDS ORDERED: DIVALPROEX SOD ER 500 MG TABSR PO SCH (21:00)
[2018-11-17] MEDS: MULTIVITAMINS PO SCH (08:12)
[2018-11-17 10:30] VITALS: BP 106/62
--- NOTE | 2018-11-17 11:08 | BHS Progress Note ---
[facility] - Subjective Progress Notes Subjective Mildred is anxious to be released and actively working to develop a release plan. Affect is very full. Is "overly pissed" after we gave feedback that that some of her release plans may be overly optimistic. She continues to show mood lability. Discussed medications and Mildred talked about her problems with alopecia. Based on this, I suggested that we switch from Depakote to lithium. She agrees to this plan and understands the typical side effects of lithium as well as the need for close monitoring for side effects following discharge. Suicidal Ideation: None Homicidal Ideation: None S - Objective Physical Exam Vital Signs Vital Signs 11/17/18 10:30 Temp 98.2 Pulse 85 Resp 18 B/P (MAP) 106/62 (77) Pulse Ox 98 O2 Delivery Room Air Muscle Strength and Tone: WNL Gait and Station: Steady [facility] Medications Reviewed: Side Effects, Benefits of Medication, Risks Allergies Reviewed: Yes Mental Status Exam General Appearance: Casual, Well Groomed, Good Eye Contact, Cooperative, Polite, Good Interaction; No Psychomotor Agitation Speech: Clear, Spontaneous, Rambling, Other (Pressured speech) Mood: Hyperthymic Affect: Other (Increased affect. Very emotional) Thought Process: Organized, Logical, Goal Directed, Flight of Ideas Thought Content: No Suicidal Ideation, No Homicidal Ideation, No Delusions; Other (see history) Sensorium: Clear Cognition: Alert & Oriented-Person, Alert & Oriented-Place, Alert & Oriented- Time, Jbblu-Wxzoblbp-Mqbqihmpd Memory: Immediate, Recent, Remote Intelligence: Average Insight Judgment: Poor [facility] Assessment and Plan Vnvx-ad-Swpz Encounter Date: Nov 17, 2018 Ogvk-pt-Ewsr Encounter Time: 10:53 [facility] Plan: Necessary Precautions, Individual/Group Therapy, Admin/Titrate Meds, Educate Patient Tobacco Medications: Started Multpiple Antipsychotics Used: No Problems: (1) Bipolar 1 disorder, mixed (2) Alopecia areata Status: Chronic (3) Alcohol use disorder Condition I am stopping Depakote in favor of lithium beginning with 300 mgs twice daily. Will advance to 300 mgs three times daily tomorrow as tolerated and do a level on Tuesday. JENARO MARR DO Nov 17, 2018 11:08
[2018-11-17] MEDS: LITHIUM CARBONATE 300 MG CAP PO SCH ×2 (11:19→21:25)
[2018-11-17 18:35] VITALS: BP 118/72
[2018-11-17] MEDS ORDERED: DIVALPROEX SOD ER 500 MG TABSR PO SCH (21:00)
[2018-11-17] MEDS: QUEtiapine FUM 100 MG TAB PO SCH (21:26)
[2018-11-18 06:06] VITALS: BP 90/44
[2018-11-18] MEDS: LITHIUM CARBONATE 300 MG CAP PO SCH ×2 (08:44→20:42)
[2018-11-18] MEDS: MULTIVITAMINS PO SCH (08:44)
[2018-11-18 09:12] VITALS: BP 90/58
--- NOTE | 2018-11-18 14:31 | BHS Progress Note ---
S - Subjective Progress Notes Subjective We started lithium yesterday and, so far, Mildred is tolerating it well. She is less pressured today. Her affect is calmer and her planing less turbulent. We talked more about lithium and what it does and the potential side effects. Suicidal Ideation: None Homicidal Ideation: None S - Objective Physical Exam Vital Signs Vital Signs 11/17/18 11/18/18 18:35 09:12 Temp 98.5 Pulse 69 Resp 16 B/P (MAP) 90/58 (69) Pulse Ox 97 O2 Delivery Room Air Muscle Strength and Tone: WNL Gait and Station: Steady [facility] Medications Reviewed: Side Effects, Benefits of Medication, Risks Allergies Reviewed: Yes Mental Status Exam General Appearance: Casual, Well Groomed, Good Eye Contact, Cooperative, Polite, Good Interaction; No Psychomotor Agitation, No Psychomotor Retardation Speech: Clear, Spontaneous Mood: Euthymic Affect: Full and Appropriate (better), Other Thought Process: Organized, Logical, Goal Directed Thought Content: No Suicidal Ideation, No Homicidal Ideation, No Delusions; Other (see history) Sensorium: Clear Cognition: Alert & Oriented-Person, Alert & Oriented-Place, Alert & Oriented- Time, Ddfer-Fwiyafvt-Lztyktskq Memory: Immediate, Recent, Remote Intelligence: Average Insight Judgment: Poor [facility] Assessment and Plan Fyqe-xk-Bhzu Encounter Date: Nov 18, 2018 Gffu-td-Mlmd Encounter Time: 09:50 [facility] Plan: Necessary Precautions, Individual/Group Therapy, Admin/Titrate Meds, Educate Patient Tobacco Medications: Started Multpiple Antipsychotics Used: No Problems: (1) Bipolar 1 disorder, mixed Assessment & Plan: Continue upward titation of lithium along with Seroquel at night. (2) Alopecia areata Status: Chronic (3) Alcohol use disorder Condition I am hoping that we may be able to complete release planning and that our lithium titration will be completed my mid-week. JENARO MARR DO Nov 18, 2018 09:56
--- NOTE | 2018-11-18 19:30 | NUR ---
REPORT FROM SARAH, WILL ASSUME CARE OF PT AT THIS TIME. PT HEADING TO SHOWER. PT CONTINUES TO WALK SLOWLY, ALMOST A SHUFFLE. CONTINUES TO MUMBLE TO HERSELF WITH MARIANO HUMBLE. NO COMPLAINTS. Addendum: 11/18/18 at 2128 by MANUEL MUHAMMAD RN ERROR. WRONG PT. REPORT FROM SARAH. WILL ASSUME CARE OF PT AT THIS TIME. PT STATES SHE IS DOING WELL, SHE HAS BEEN ON THE PHONE MULTIPLE TIMES. NO COMPLAINTS OR DISTRESS NOTED.
[2018-11-18 20:38] VITALS: BP 107/62
[2018-11-18] MEDS: QUEtiapine FUM 100 MG TAB PO SCH (20:43)
[2018-11-19 06:12] VITALS: BP 105/61
[2018-11-19] MEDS: MULTIVITAMINS PO SCH (08:25)
[2018-11-19] MEDS: LITHIUM CARBONATE 300 MG CAP PO SCH ×2 (08:25→20:32)
--- NOTE | 2018-11-19 11:04 | BHS Progress Note ---
S - Subjective Progress Notes Subjective "I feel good. I slept well other than waking up once to grab another blanket." She shares her plans with the team which include finding housing and attending an outpatient substance abuse treatment local to [place] in the case that she does not go to the [facility]. She denies any SI. Denies hallucinations. Rates current depression level 0, anxiety 0, anger 0, guilt/shame 0. [place] level 0.6 this am. Suicidal Ideation: None Homicidal Ideation: None S - Objective Physical Exam Vital Signs Vital Signs Date Time Temp Pulse Resp B/P (MAP) Pulse Ox O2 Delivery O2 Flow Rate FiO2 11/19/18 06:12 97.4 63 105/61 (76) 95 Room Air 11/17/18 18:35 16 Muscle Strength and Tone: WNL Gait and Station: Steady [facility] Medications Reviewed: Side Effects, Benefits of Medication, Risks Allergies Reviewed: Yes Mental Status Exam General Appearance: Casual, Well Groomed, Good Eye Contact, Cooperative, Polite, Good Interaction; No Psychomotor Agitation, No Psychomotor Retardation Speech: Clear, Spontaneous Mood: Euthymic Affect: Full and Appropriate (better), Other Thought Process: Organized, Logical, Goal Directed Thought Content: No Suicidal Ideation, No Homicidal Ideation, No Delusions; Other (see history) Sensorium: Clear Cognition: Alert & Oriented-Person, Alert & Oriented-Place, Alert & Oriented- Time, Hdljy-Fzfphtoh-Lwngiofzp Memory: Immediate, Recent, Remote Intelligence: Average Insight Judgment: Poor [facility] Assessment and Plan Uran-ji-Ronf Encounter Date: Nov 19, 2018 Rsju-rw-Rfnz Encounter Time: 10:30 [facility] Plan: Necessary Precautions, Individual/Group Therapy, Admin/Titrate Meds, Educate Patient Tobacco Medications: Started Multpiple Antipsychotics Used: No Problems: (1) Bipolar disorder, unspecified (2) Alcohol use disorder, severe, dependence Status: Chronic (3) Cannabis use disorder, severe, dependence Status: Chronic Condition Client is seen with clinical team. She is reporting feeling improved mood and sleep. She is tolerating medications and is cooperative with staff. She is reporting plan to attend an outpatient [place] substance abuse [place]anch" located outside of [place] once she is back at home. Will continue discharge planning. UMA MIDDLETON NP Nov 19, 2018 11:04
[2018-11-19 12:30] VITALS: BP 112/64
--- NOTE | 2018-11-19 19:32 | NUR ---
REPORT FROM ROSELIA/LISE. WILL ASSUME CARE OF PT AT THIS TIME. PT WAS ON PHONE, TALKING TO FAMILY. NOW IN TV ROOM, READING. PT STATES SHE IS "A LITTLE GRUMPY TODAY" BUT OTHERWISE DOING FINE AND PLEASED SHE GOT TO TALK TO HER FAMILY. NO DISTRESS NOTED AT THIS TIME
[2018-11-19] MEDS: QUEtiapine FUM 100 MG TAB PO SCH (20:32)
[2018-11-19 20:45] VITALS: BP 138/84
[2018-11-19] MEDS: HYPROMELLOSE 0.4% LUB 15ML BTL OU PRN (21:21)
[2018-11-20 06:41] VITALS: BP 94/66
[2018-11-20] MEDS: NICOTINE INH SYSTEM 10 MG/INH INH PRN (07:27)
[2018-11-20] MEDS: HYPROMELLOSE 0.4% LUB 15ML BTL OU PRN ×2 (07:28→22:09)
[2018-11-20] MEDS: LITHIUM CARBONATE 300 MG CAP PO SCH ×2 (08:39→20:44)
[2018-11-20] MEDS: MULTIVITAMINS PO SCH (08:40)
[2018-11-20 08:58] VITALS: BP 101/71
--- NOTE | 2018-11-20 14:13 | BHS Progress Note ---
[facility] - Subjective Progress Notes Subjective Pt seen in treatment team with team present. Pt says she feels "good," she slept ok last night, denies SI, and is tolerating medications well. Taking seroquel 200 mg and lithium 600 mg BID, with lithium level yesterday at 0.6. She is still fairly pressured in her speech ans labile in her affect-- laughing and friendly with us, then suddenly irritable, and swore when she was talking about wanting to discharge this week, she subtly threatened us "My kids are gonna be mad at you if I'm not home this weekend." She is still scattered in her thought process, it's hard to get her to slow down and listen and absorb information. We are working with her to get stable housing and aftercare arrangements made, then we need to file [id number] paperwork before we can discharge her. Continue current medications and treatment plan. Suicidal Ideation: None Homicidal Ideation: None [facility] - Objective Physical Exam Vital Signs Vital Signs 11/19/18 11/20/18 12:30 08:58 Temp 98.9 Pulse 78 Resp 16 B/P (MAP) 101/71 (81) Pulse Ox 96 O2 Delivery Room Air Muscle Strength and Tone: WNL Gait and Station: Steady [facility] Medications Reviewed: Side Effects, Benefits of Medication, Risks Allergies Reviewed: Yes Mental Status Exam General Appearance: Casual, Good Eye Contact, Cooperative Speech: Clear, Spontaneous, Rambling Mood: Euthymic Affect: Full and Appropriate (better), Other (irritable, labile) Thought Process: Organized, Logical, Goal Directed Thought Content: No Suicidal Ideation, No Homicidal Ideation, No Delusions, No Auditory Halllucinations, No Visual Hallucinations, No Thought Broadcasting, No Ideas of Reference, No Obsessions, No Compulsions, No Other Sensorium: Clear Cognition: Alert & Oriented-Person, Alert & Oriented-Place, Alert & Oriented- Time, Chsof-Kqtkiycs-Ffbddolkx Memory: Immediate, Recent, Remote Intelligence: Average Insight Judgment: Fair [facility] Assessment and Plan Dnww-un-Lizc Encounter Date: Nov 20, 2018 Msnz-jh-Lskb Encounter Time: 08:30 [facility] Plan: Necessary Precautions, Individual/Group Therapy, Admin/Titrate Meds, Educate Patient Tobacco Medications: Started Multpiple Antipsychotics Used: No Problems: (1) Alcohol use disorder, severe, dependence Status: Chronic (2) Bipolar disorder, unspecified (3) Cannabis use disorder, severe, dependence Status: Chronic MYNOR GARRETT MD Nov 20, 2018 14:13
--- NOTE | 2018-11-20 20:18 | NUR ---
REPORT FROM KACY/RN. WILL ASSUME CARE OF PT AT THIS TIME. PT ON PHONE, HAD SNACK, WATCHING TV. NO DISTRESS NOTED AT THIS TIME
[2018-11-20] MEDS: QUEtiapine FUM 100 MG TAB PO SCH (20:44)
[2018-11-21 06:55] VITALS: BP 91/63
[2018-11-21] MEDS: LITHIUM CARBONATE 300 MG CAP PO SCH ×2 (08:41→21:06)
[2018-11-21] MEDS: MULTIVITAMINS PO SCH (08:41)
[2018-11-21] MEDS: NICOTINE INH SYSTEM 10 MG/INH INH PRN (17:34)
--- NOTE | 2018-11-21 20:02 | NUR ---
REPORT FROM DARYN/RN. WILL ASSUME CARE OF PT AT THIS TIME. PT CONTINUES TO BE TALKING ON PHONE. NO COMPLAINTS OR DISTRESS AT THIS TIME
--- NOTE | 2018-11-21 20:55 | BHS Progress Note ---
[facility] - Subjective Progress Notes Subjective Pt seen with staff in conference room. She is in good spirits today, denies SI. Speech is much less pressured, though she still has significant hypergraphia, taking notes, has a bunch of papers with her, a calendar that she made with appointments written on it for November... She is tolerating meds well-- denies n/v/d/tremor. Sleeping well, denies "hangover" feeling in the am from seroquel. Places are coming into place for tentative discharge Tuesday, if we can get the 1481 form approved by [facility]. She has secured stable housing with friends in [place] with whom she can stay indefinitely as long as she stays sober. We are arranging outpatient follow up at the mental health center. For now will continue current medications. Suicidal Ideation: None Homicidal Ideation: None [facility] - Objective Physical Exam Vital Signs Vital Signs 11/19/18 11/21/18 12:30 06:55 Temp 98.0 Pulse 74 Resp 16 B/P (MAP) 91/63 (72) Pulse Ox 96 O2 Delivery Room Air Muscle Strength and Tone: WNL Gait and Station: Steady [facility] Medications Reviewed: Side Effects, Benefits of Medication, Risks Allergies Reviewed: Yes Mental Status Exam General Appearance: Casual, Good Eye Contact, Cooperative, Other (writing notes constantly as we talked) Speech: Clear, Spontaneous, Rambling Mood: Euthymic, Hyperthymic Affect: Other (hyperthymic) Thought Process: Organized, Logical, Goal Directed Thought Content: No Suicidal Ideation, No Homicidal Ideation, No Delusions, No Auditory Halllucinations, No Visual Hallucinations, No Thought Broadcasting, No Ideas of Reference, No Obsessions, No Compulsions, No Other Sensorium: Clear Cognition: Alert & Oriented-Person, Alert & Oriented-Place, Alert & Oriented- Time, Bcwuv-Jwkzyqok-Edtvhlojy Memory: Immediate, Recent, Remote Intelligence: Average Insight Judgment: Fair [facility] Assessment and Plan Kbcg-[id number] Encounter Date: Nov 21, 2018 Czul-me-Tqmj Encounter Time: 08:30 [facility] Plan: Necessary Precautions, Individual/Group Therapy, Admin/Titrate Meds, Educate Patient Tobacco Medications: Started Multpiple Antipsychotics Used: No Problems: (1) Alcohol use disorder, severe, dependence Status: Chronic (2) Bipolar disorder, unspecified (3) Cannabis use disorder, severe, dependence Status: Chronic MYNOR GARRETT MD Nov 21, 2018 20:55
[2018-11-21] MEDS: QUEtiapine FUM 100 MG TAB PO SCH (21:07)
[2018-11-22 06:30] VITALS: BP 82/50
[2018-11-22] MEDS: LITHIUM CARBONATE 300 MG CAP PO SCH ×2 (08:59→21:18)
[2018-11-22] MEDS: MULTIVITAMINS PO SCH (08:59)
[2018-11-22] MEDS: HYPROMELLOSE 0.4% LUB 15ML BTL OU PRN (14:09)
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
[2018-11-22] MEDS: QUEtiapine FUM 100 MG TAB PO SCH (21:18)
[2018-11-23] MEDS: LITHIUM CARBONATE 300 MG CAP PO SCH ×2 (08:21→20:12)
[2018-11-23] MEDS: MULTIVITAMINS PO SCH (08:21)
[2018-11-23 08:33] VITALS: BP 93/69
--- NOTE | 2018-11-23 09:34 | BHS Progress Note ---
S - Subjective Progress Notes Subjective Pt seen in conference room with team. Pt doing well, mood good, slept well. Bit by bit her speech is less pressured, though still some hypergraphia (a lot). Tolerating meds well without SE-- no n/v/d. Working on DC planning, did some education re staying on mood stabilizer, staying away from antidepressants, following up with out patient treatment. Target date is Tuesday. [id number] [facility]. Continue current tx plan. Suicidal Ideation: None Homicidal Ideation: None S - Objective Physical Exam Vital Signs Vital Signs 11/23/18 08:33 Temp 98.8 Pulse 69 Resp 16 B/P (MAP) 93/69 (77) Pulse Ox 96 O2 Delivery Room Air Muscle Strength and Tone: WNL Gait and Station: Steady [facility] Medications Reviewed: Side Effects, Benefits of Medication, Risks Allergies Reviewed: Yes Mental Status Exam General Appearance: Casual, Well Groomed, Good Eye Contact, Cooperative, Polite, Good Interaction, Other (still moderate to extreme hypergraphia) Speech: Clear, Spontaneous, Other (fast but interruptible) Mood: Euthymic, Hyperthymic (but calmer) Affect: Calm Thought Process: Organized, Logical, Goal Directed Thought Content: No Suicidal Ideation, No Homicidal Ideation, No Delusions, No Auditory Halllucinations, No Visual Hallucinations, No Thought Broadcasting, No Ideas of Reference, No Obsessions, No Compulsions, No Other Sensorium: Clear Cognition: Alert & Oriented-Person, Alert & Oriented-Place, Alert & Oriented- Time, Sbspl-Fqissapl-Nmslkhfwm Memory: Immediate, Recent, Remote Intelligence: Average Insight Judgment: Fair [facility] Assessment and Plan Sbmk-[id number]-[id number] Encounter Date: Nov 23, 2018 Zhak-ef-Kszf Encounter Time: 09:32 [facility] Plan: Necessary Precautions, Individual/Group Therapy, Admin/Titrate Meds, Educate Patient Tobacco Medications: Started Multpiple Antipsychotics Used: No Problems: (1) Alcohol use disorder, severe, dependence Status: Chronic (2) Bipolar disorder, unspecified (3) Cannabis use disorder, severe, dependence Status: Chronic MYNOR GARRETT MD Nov 23, 2018 09:34
[2018-11-23] MEDS: HYPROMELLOSE 0.4% LUB 15ML BTL OU PRN (11:36)
[2018-11-23] MEDS: QUEtiapine FUM 100 MG TAB PO SCH (20:12)
[2018-11-24 05:30] VITALS: BP 100/60
[2018-11-24] MEDS: LITHIUM CARBONATE 300 MG CAP PO SCH ×2 (08:25→20:40)
[2018-11-24] MEDS: MULTIVITAMINS PO SCH (08:25)
--- NOTE | 2018-11-24 15:43 | BHS Progress Note ---
S - Subjective Progress Notes Subjective Pt seen in treatment team with three of her friends from [place] on the phone, including the couple who will be picking her up and with whom she will be living temporarily. Pt says she is a little anxious about discharge, but also excited. They will pick her up tomorrow. We submitted [id number] 2 days ago and there has been no protest from [facility]. She is tolerating lithium and seroquel well. She will follow up at local [facility]. We discussed sobriety, AA meeting. Her friends are all in the program and very supportive. Tentative discharge tomorrow if she remains stable. Suicidal Ideation: None Homicidal Ideation: None [facility] - Objective Physical Exam Vital Signs Vital Signs 11/24/18 05:30 Temp 97.6 Pulse 66 Resp 15 B/P (MAP) 100/60 (73) Pulse Ox 95 O2 Delivery Room Air Muscle Strength and Tone: WNL Gait and Station: Steady [facility] Medications Reviewed: Side Effects, Benefits of Medication, Risks Allergies Reviewed: Yes Mental Status Exam General Appearance: Casual, Well Groomed, Good Eye Contact, Cooperative, Polite, Good Interaction, Other (still moderate to extreme hypergraphia) Speech: Clear, Spontaneous, Other (fast but interruptible) Mood: Euthymic, Hyperthymic (but calmer) Affect: Calm Thought Process: Organized, Logical, Goal Directed Thought Content: No Suicidal Ideation, No Homicidal Ideation, No Delusions, No Auditory Halllucinations, No Visual Hallucinations, No Thought Broadcasting, No Ideas of Reference, No Obsessions, No Compulsions, No Other Sensorium: Clear Cognition: Alert & Oriented-Person, Alert & Oriented-Place, Alert & Oriented- Time, Teanj-Xundzmiw-Ogsbiccyn Memory: Immediate, Recent, Remote Intelligence: Average Insight Judgment: Fair S Assessment and Plan Nlrl-[id number]-[id number] Encounter Date: Nov 24, 2018 Rqmj-uj-Hjjf Encounter Time: 09:00 [facility] Plan: Necessary Precautions, Individual/Group Therapy, Admin/Titrate Meds, Educate Patient Tobacco Medications: Started Multpiple Antipsychotics Used: No Problems: (1) Alcohol use disorder, severe, dependence Status: Chronic (2) Bipolar disorder, unspecified (3) Cannabis use disorder, severe, dependence Status: Chronic MYNOR GARRETT MD Nov 24, 2018 15:43
[2018-11-24 18:39] VITALS: BP 128/64
[2018-11-24] MEDS: QUEtiapine FUM 100 MG TAB PO SCH (20:40)
[2018-11-25] MEDS ORDERED: QUEtiapine FUM 100 MG TAB PO SCH
[2018-11-25] MEDS ORDERED: LITHIUM CARBONATE 300 MG CAP PO SCH
[2018-11-25 06:22] VITALS: BP 98/69
[2018-11-25] MEDS: MULTIVITAMINS PO SCH (08:10)
[2018-11-25] MEDS: LITHIUM CARBONATE 300 MG CAP PO SCH (08:11)
[2018-11-25] MEDS ORDERED: NIC10R INH (09:17)
[2018-11-25] MEDS ORDERED: LITH600C6 PO (09:17)
[2018-11-25] MEDS ORDERED: DEXT15DR OU (09:17)
[2018-11-25] MEDS ORDERED: QUET200T29 PO (09:17)
--- NOTE | 2018-11-25 09:19 | BHS Progress Note ---
[facility] - Subjective Progress Notes Subjective "I have an appt with [facility]." Discharging home today Rating depression/anxiety 0 Denies mood swings, anger Sleeping 8 hours, denies racing thoughts, AVH Denies SI/HI Suicidal Ideation: None Homicidal Ideation: None [facility] - Objective Physical Exam Vital Signs Medications (Trade) Dose Ordered Sig/Veena Route PRN Reason Start Time Stop Time Status Last Admin Dose Admin Acetaminophen (Tylenol(*)325 Mg Tab (Or Equiv)) 650 mg Q4H PRN PO HEADACHE 11/07/18 18:50 12/07/18 18:49 11/23/18 16:03 Buspirone HCl (Buspar 5 Mg Tab (Or Equiv)) 5 mg BID PO 11/13/18 21:35 11/14/18 14:10 DC 11/14/18 08:29 Citalopram Hydrobromide (CeleXA 20 MG TAB (OR EQUIV)) 40 mg QDAY PO 11/08/18 09:00 11/10/18 09:06 DC 11/10/18 08:06 Divalproex Sodium (Depakote Er 500 Mg Tabsr (Or Equiv)) 500 mg QHS PO 11/16/18 21:00 11/17/18 10:57 DC 11/16/18 20:50 Eucalyptus/Menthol ([place] Cough Drops Jonathan (Or Equiv)) 1 jonathan PRN PRN MM COUGH 11/11/18 09:15 12/11/18 09:14 11/11/18 13:25 Hypromellose (Natural Balance Tears 0.4% 15 ml Btl) 1-2 DROPS PRN PRN OU SEE COMMENT 11/19/18 18:00 12/19/18 17:59 11/23/18 11:36 Lamotrigine (LaMICtal 25 MG TAB (OR EQUIV)) 75 mg ONCE ONCE PO 11/15/18 09:00 11/15/18 13:56 DC 11/15/18 08:40 Curtice Carbonate (Curtice Carbonate 300 Mg Cap) 600 mg BID PO 11/18/18 21:00 12/18/18 20:59 11/25/18 08:11 Miscellaneous Information (Nicotrol Cartridge) 1 each PRN PRN PO NICOTINE REPLACEMENT 11/11/18 08:55 12/11/18 08:54 11/15/18 17:03 Multivitamins (Thera-M Enhanced Tab (Or Equiv)) 1 each QDAY PO 11/08/18 09:00 12/08/18 08:59 11/25/18 08:10 Nicotine (Nicotrol Inhaler 10 Mg/Inh (Or Equiv)) 10 mg PRN PRN INH NICOTINE REPLACEMENT 11/11/18 08:55 12/11/18 08:54 11/21/18 17:34 Quetiapine Fumarate (SEROquel 100 MG TAB (OR EQUIV)) 200 mg QHS PO 11/15/18 21:00 12/15/18 20:59 11/24/18 20:40 Quetiapine Fumarate (SEROquel 25 MG TAB (OR EQUIV)) 50 mg QHS PO 11/13/18 21:00 11/15/18 10:28 DC 11/14/18 20:52 Trazodone HCl (Desyrel 50 Mg Tab (Or Equiv)) 100 mg QHS PRN PO INSOMNIA 11/08/18 12:55 11/13/18 08:53 DC 11/12/18 21:02 Deferred Laboratory Tests 11/10/18 06:33 Laboratory Tests 11/10/18 06:33: White Blood Count 7.6, Red Blood Count 5.01, Hemoglobin 14.9, Hematocrit 45.2, Mean Corpuscular Volume 90.3, Mean Corpuscular Hemoglobin 29.8, Mean Corpuscular Hemoglobin Concent 33.0, Red Cell Distribution Width 14.4, Platelet Count 246, Mean Platelet Volume 7.6, Neutrophils (%) (Auto) 52.1, Lymphocytes (%) (Auto) 35.9, Monocytes (%) (Auto) 8.5, Eosinophils (%) (Auto) 2.5, Basophils (%) (Auto) 1.0, Nucleated RBC Relative Count (auto) 0.0, Neutrophils # (Auto) 3.9, Lymphocytes # (Auto) 2.7, Monocytes # (Auto) 0.6, Eosinophils # (Auto) 0.2, Basophils # (Auto) 0.1, Nucleated RBC Absolute Count (auto) 0.00, Sodium Level 140, Potassium Level 4.1, Chloride Level 106, Carbon Dioxide Level 27, Blood Urea Nitrogen 15, Creatinine 0.60, Glomerular Filtration Rate Calc > 60.0, Random Glucose 81, Calcium Level 9.2, Total Bilirubin 0.2, Aspartate Amino Transf (AST/SGOT) 22, Alanine Aminotransferase (ALT/SGPT) 25, Alkaline Phosphatase 80, Total Protein 6.9, Albumin 4.2 11/19/18 06:08: Curtice Level 0.6 Allergies Coded Allergies diphenhydramine (Verified Allergy, Intermediate, Hives, 11/07/18) Muscle Strength and Tone: WNL Gait and Station: Steady S Medications Reviewed: Side Effects, Benefits of Medication, Risks Allergies Reviewed: Yes Mental Status Exam General Appearance: Casual, Well Groomed, Good Eye Contact, Cooperative, Polite, Good Interaction, Other (still moderate to extreme hypergraphia) Speech: Clear, Spontaneous, Other (fast but interruptible) Mood: Euthymic, Hyperthymic (but calmer) Affect: Calm Thought Process: Organized, Logical, Goal Directed Thought Content: No Suicidal Ideation, No Homicidal Ideation, No Delusions, No Auditory Halllucinations, No Visual Hallucinations, No Thought Broadcasting, No Ideas of Reference, No Obsessions, No Compulsions, No Other Sensorium: Clear Cognition: Alert & Oriented-Person, Alert & Oriented-Place, Alert & Oriented- Time, Npihs-Lwmxzhox-Hbrxrvsaf Memory: Immediate, Recent, Remote Intelligence: Average Insight Judgment: Fair Lab Vital Signs Date Time Temp Pulse Resp B/P (MAP) Pulse Ox O2 Delivery O2 Flow Rate FiO2 11/25/18 06:22 98.0 72 15 98/69 (79) 91 Room Air Microbiology Current Medications Medications (Trade) Dose Ordered Sig/Veena Route PRN Reason Start Time Stop Time Status Last Admin Dose Admin Acetaminophen (Tylenol(*)325 Mg Tab (Or Equiv)) 650 mg Q4H PRN PO HEADACHE 11/07/18 18:50 12/07/18 18:49 11/23/18 16:03 Al Hydrox/Mg Hydrox/Simethicone (Maalox(*) 30 ml Udcup (Or Equiv)) 30 ml Q4H PRN PO DYSPEPSIA 11/07/18 18:50 12/07/18 18:49 Multivitamins (Thera-M Enhanced Tab (Or Equiv)) 1 each QDAY PO 11/08/18 09:00 12/08/18 08:59 11/25/18 08:10 Citalopram Hydrobromide (CeleXA 20 MG TAB (OR EQUIV)) 40 mg QDAY PO 11/08/18 09:00 11/10/18 09:06 DC 11/10/18 08:06 Buspirone HCl (Buspar 5 Mg Tab (Or Equiv)) 15 mg BID PO 11/07/18 21:00 11/13/18 09:01 DC 11/13/18 08:27 Trazodone HCl (Desyrel 50 Mg Tab (Or Equiv)) 50 mg QHS PRN PO INSOMNIA 11/07/18 20:45 11/08/18 12:54 DC 11/07/18 21:15 Trazodone HCl (Desyrel 50 Mg Tab (Or Equiv)) 100 mg QHS PRN PO INSOMNIA 11/08/18 12:55 11/13/18 08:53 DC 11/12/18 21:02 Lamotrigine (LaMICtal 25 MG TAB (OR EQUIV)) 25 mg QAM PO 11/11/18 09:00 11/15/18 10:28 DC 11/14/18 08:29 Nicotine (Nicotrol Inhaler 10 Mg/Inh (Or Equiv)) 10 mg PRN PRN INH NICOTINE REPLACEMENT 11/11/18 08:55 12/11/18 08:54 11/21/18 17:34 Miscellaneous Information (Nicotrol Cartridge) 1 each PRN PRN PO NICOTINE REPLACEMENT 11/11/18 08:55 12/11/18 08:54 11/15/18 17:03 Eucalyptus/Menthol ([place] Cough Drops Jonathan (Or Equiv)) 1 jonathan PRN PRN MM COUGH 11/11/18 09:15 12/11/18 09:14 11/11/18 13:25 Quetiapine Fumarate (SEROquel 25 MG TAB (OR EQUIV)) 50 mg QHS PO 11/13/18 21:00 11/15/18 10:28 DC 11/14/18 20:52 Buspirone HCl (Buspar 5 Mg Tab (Or Equiv)) 5 mg BID PO 11/14/18 09:00 11/14/18 09:00 DC Buspirone HCl (Buspar 5 Mg Tab (Or Equiv)) 5 mg BID PO 11/13/18 21:35 11/14/18 14:10 DC 11/14/18 08:29 Lamotrigine (LaMICtal 25 MG TAB (OR EQUIV)) 25 mg ONCE ONCE PO 11/14/18 11:00 11/15/18 10:28 DC 11/14/18 11:00 Lamotrigine (LaMICtal 25 MG TAB (OR EQUIV)) 75 mg ONCE ONCE PO 11/15/18 09:00 11/15/18 13:56 DC 11/15/18 08:40 Lamotrigine (LaMICtal 100 MG TAB (OR EQUIV)) 100 mg QAM PO 11/16/18 09:00 11/16/18 09:00 DC Divalproex Sodium (Depakote Er 500 Mg Tabsr (Or Equiv)) 500 mg BID PO 11/15/18 10:25 11/15/18 10:33 DC Quetiapine Fumarate (SEROquel 100 MG TAB (OR EQUIV)) 200 mg QHS PO 11/15/18 21:00 12/15/18 20:59 11/24/18 20:40 Divalproex Sodium (Depakote Er 500 Mg Tabsr (Or Equiv)) 500 mg QHS PO 11/16/18 21:00 11/17/18 10:57 DC 11/16/18 20:50 Divalproex Sodium (Depakote Er 500 Mg Tabsr (Or Equiv)) 1,000 mg QHS PO 11/17/18 21:00 11/17/18 21:00 DC Curtice Carbonate (Curtice Carbonate 300 Mg Cap) 300 mg BID PO 11/17/18 11:05 11/18/18 09:55 DC 11/18/18 08:44 Curtice Carbonate (Curtice Carbonate 300 Mg Cap) 600 mg BID PO 11/18/18 21:00 12/18/18 20:59 11/25/18 08:11 Hypromellose (Natural Balance Tears 0.4% 15 ml Btl) 1-2 DROPS PRN PRN OU SEE COMMENT 11/19/18 18:00 12/19/18 17:59 11/23/18 11:36 [facility] Assessment and Plan [id number] Encounter Date: Nov 25, 2018 Ozwt-[id number]-[id number] Encounter Time: 09:18 S Plan: Necessary Precautions, Individual/Group Therapy, Admin/Titrate Meds, Educate Patient Tobacco Medications: Started Multpiple Antipsychotics Used: No Problems: (1) Alcohol use disorder, severe, dependence Status: Chronic (2) Partner relational problem Status: Acute (3) Persistent depressive disorder Status: Chronic (4) Cannabis use disorder, severe, dependence Status: Chronic Condition Discharge to home SAPNA BULLARD NP Nov 25, 2018 09:19
[2018-11-25] MEDS: NICOTINE INH SYSTEM 10 MG/INH INH PRN (11:24)
[2018-11-25] MEDS: NICOTINE CARTRIDGE 1 EA PO PRN (11:24)
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
== END 2018-11-25 12:30 | disposition home or self-care (01) | DRG 885 ==
LOC: BHS 17:07
PROVIDERS: ADMIT Psychiatry & Neurology Psychiatry; ATTEND Psychiatry & Neurology Psychiatry
DX: F31.9 Bipolar disorder, unspecified (principal); R45.851 Suicidal ideations; F10.20 Alcohol dependence, uncomplicated; F12.20 Cannabis dependence, uncomplicated; Z91.5 Personal history of self-harm; L63.9 Alopecia areata, unspecified; Y90.0 Blood alcohol level of less than 20 mg/100 ml; Z63.0 Problems in relationship with spouse or partner; Z81.8 Family history of other mental and behavioral disorders; Z88.8 Allergy status to other drugs, medicaments and biological substances; Z91.419 Personal history of unspecified adult abuse; Z62.810 Personal history of physical and sexual abuse in childhood; Z59.0 Homelessness; Z90.710 Acquired absence of both cervix and uterus
CPT/HCPCS: 36415; 80178; 82040; 82247; 82310; 82374; 82435; 82565; 82947; 84075; 84132; 84155; 84295; 84450; 84460; 84520; 85025; 93005